=== PATIENT | male | born 1960 | race Caucasian/White ===

== ENCOUNTER 2018-02-08 15:29 | Emergency (ER) | payer OTHER ==
[2018-02-08] MEDS ORDERED: diPHENhydraMINE PO* 25 MG PO ONE (15:33)
[2018-02-08] MEDS ORDERED: EPINEPHrine AMP 1 MG/ML IM ONE ×2 (15:33→15:59)
[2018-02-08] MEDS ORDERED: predniSONE TAB* 10 MG PO ONE (15:45)
--- NOTE | 2018-02-08 15:53 | UC ---
Allergic Reaction HPI - HPI Summary HPI Summary: The patient is a 57-year-old male who presents here with an allergic reaction after eating watermelon. States that soon after eating a large piece of watermelon he developed sneezing and tightness in his throat. He denies any urticaria or wheezing. He denies any nausea or vomiting. He states that prior to arriving here he took 25 mg of Benadryl and 10 mg of prednisone that he had left over from a prior prescription. - History of Current Complaint Chief Complaint: UCAllergicReaction Stated Complaint: ALLERGIC REACTION Time Seen by Provider: 02/08/18 15:33 Hx Obtained From: Patient Onset/Duration: Sudden Onset, Lasting Minutes Severity Initially: Mild Severity Currently: Moderate Pain Intensity: 0 Pain Scale Used: 0-10 Numeric Location: Discrete @ - throat Character: Swelling - feels swolen Alleviating Factor(s): Nothing Associated Signs And Symptoms: Positive: Throat Tightening - Related Hx Prior Episode Dx as Allergic Reaction to: Same/Other: ?honey - Allergies/Home Medications Allergies/Adverse Reactions: Allergies Allergy/AdvReac Type Severity Reaction Status Date / Time cephalexin [From Keflex] Allergy Rash Verified 02/08/18 15:36 Home Medications: Home Medications Albuterol HFA INHALER* [Ventolin HFA Inhaler*] 02/08/18 [History] Fluticasone DISKUS 250 MCG(NF) [Flovent Diskus 250 MCG(NF)] 02/08/18 [History] Lisinopril TAB* [Prinivil TAB 5 MG*] 1 tab DAILY 02/08/18 [History Confirmed ] PMH/Surg Hx/FS Hx/Imm Hx Cardiovascular History: Hypertension Respiratory History: Asthma - Surgical History Surgical History: Yes Surgery Procedure, Year, and Place: "back surgeries" - Family History Known Family History: Positive: Hypertension - Social History Alcohol Use: Occasionally Substance Use Type: None Smoking Status (MU): Never Smoked Tobacco Review of Systems Constitutional: Negative Skin: Negative Eyes: Negative ENT: Negative Respiratory: Negative Cardiovascular: Negative Gastrointestinal: Negative Genitourinary: Negative Motor: Negative Neurovascular: Negative Musculoskeletal: Negative Neurological: Negative Psychological: Negative Is Patient Immunocompromised?: No All Other Systems Reviewed And Are Negative: Yes Physical Exam Triage Information Reviewed: Yes Appearance: Well-Appearing, No Pain Distress, Well-Nourished Vital Signs: Initial Vital Signs Temp 97.8 F 02/08/18 15:37 Pulse 82 02/08/18 15:37 Resp 18 02/08/18 15:37 BP 147/86 02/08/18 15:37 Pulse Ox 99 02/08/18 15:37 Vital Signs Reviewed: Yes Eyes: Positive: Conjunctiva Clear ENT: Positive: Hearing grossly normal, Hoarse voice - slight, Uvula midline. Negative: Pharyngeal erythema, Nasal congestion, Nasal drainage, Tonsillar swelling, Tonsillar exudate, Trismus, Muffled voice Neck: Positive: Supple, Nontender Respiratory: Positive: Lungs clear, Normal breath sounds, No respiratory distress, No accessory muscle use Cardiovascular: Positive: RRR, No Murmur Musculoskeletal: Positive: ROM Intact, No Edema Neurological: Positive: Alert Psychological Exam: Normal Skin Exam: Normal Re-Evaluation - Re-Evaluation First Eval Re-Evaluation Time: 16:43 Change: Improved - Patient feels improved after second dose of epi. And exam there is still some swelling of the soft palate and uvula. He denies any wheezing and his lungs are clear to auscultation. Second Eval Re-Evaluation Time: 17:13 Change: Improved - wants to leave Allergic Reaction Course/Dx - Differential Dx/Diagnosis Provider Diagnoses: allergic reaction to water melon Discharge - Sign-Out/Discharge Documenting (check all that apply): Patient Departure - Discharge Plan Condition: Improved Disposition: HOME Prescriptions: EPINEPHrine [Epipen 2-Doug] 0.3 mg IM ONCE PRN #1 inj PRN Reason: Allergy Symptoms predniSONE [Deltasone 20 MG TAB] 40 mg PO DAILY #8 tab Patient Education Materials: Epinephrine (By injection), Food Allergy (ED) Referrals: Vladimir Mejias MD [Medical Doctor] - As Soon As Possible Bradly Cohen MD [Medical Doctor] - As Soon As Possible Additional Instructions: use your inhaler if you feel wheezy return or to ER if symptoms worsen 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
[2018-02-08 17:21] VITALS: BP 132/90
[2018-02-08] MEDS ORDERED: EPINEPHRINE 1 MG/ML 1 ML VIAL ONE ×2 (19:11→19:12)
== END 2018-02-08 17:30 | disposition home or self-care (01) ==
LOC: UCCORT 15:29
DX: T78.1XXA Other adverse food reactions, not elsewhere classified, initial encounter (principal); X58.XXXA Exposure to other specified factors, initial encounter; Y93.9 Activity, unspecified; Y92.9 Unspecified place or not applicable; Z88.1 Allergy status to other antibiotic agents
CPT/HCPCS: 96372; 99203; A9270-GY; G0463; J0171; J7512